=== PATIENT | male | born 1950 | race Caucasian/White ===

== ENCOUNTER 2016-11-26 22:04 | Inpatient (IN) | payer OTHER ==
[~2016-11-26] VITALS: Ht 193 cm; Wt 97.5 kg
[~2016-11-26 22:04] MED LIST: ACULAR 0.5100 DROP/5 LEFT EYE; ENALAPRIL MALEA20 MG PO; ERYTHROMYC1 APPLICAT LEFT EYE; MAXZIDE 75/501 EACH PO
[2016-11-27 09:47] VITALS: BP 144/78
[2016-11-27 14:49] LABS: HEMATOCRIT 37.6 % (38.0-50.0); MCV 92.2 FL (86-99)
[2016-11-27 16:01] VITALS: BP 143/72
[2016-11-27 19:36] VITALS: BP 124/72
[2016-11-28 00:25] VITALS: BP 114/58
[2016-11-28 04:31] VITALS: BP 101/58
[2016-11-28 06:39] LABS: HEMATOCRIT 36.5 % (38.0-50.0); MCV 91.5 FL (86-99)
[2016-11-28 08:25] VITALS: BP 119/56
[2016-11-28 12:04] VITALS: BP 110/67
[2016-11-28 15:50] VITALS: BP 101/55
[2016-11-28 19:50] VITALS: BP 100/55
[2016-11-29 00:15] VITALS: BP 101/57
[2016-11-29 04:24] VITALS: BP 122/54
[2016-11-29 05:33] LABS: HEMATOCRIT 33.7 % (38.0-50.0); MCV 91.8 FL (86-99)
[2016-11-29] MEDS ORDERED: BENADRYL25 MG PO (10:15)
[2016-11-29] MEDS ORDERED: TYLENOL REGULA325 MG PO (10:19)
[2016-11-29] MEDS ORDERED: BISACODYL5 MG PO (10:19)
[2016-11-29] MEDS ORDERED: ELIQUIS2.5 MG PO (10:20)
[2016-11-29] MEDS ORDERED: OXYCODONE HCL5 MG PO (10:20)
[2016-11-29] MEDS ORDERED: CELECOXIB200 MG PO (10:20)
[2016-11-29 11:52] VITALS: BP 85/52
== END 2016-11-29 15:40 | disposition home health service (06) | DRG 470 ==
LOC: ENRESERV 22:04 → 2SOUTH 11-27 08:16 → 3WEST 11-27 09:18 → 2SOUTH 11-27 09:18 → 3WEST 11-27 15:36
PROVIDERS: Orthopaedic Surgery
PROC: 0SR904Z Replacement of Right Hip Joint with Ceramic on Polyethylene Synthetic Substitute, Open Approach (ICD-10-PCS; principal; 2016-11-27)
DX: M16.11 Unilateral primary osteoarthritis, right hip (principal); I10 Essential (primary) hypertension; G47.9 Sleep disorder, unspecified; R61 Generalized hyperhidrosis; R42 Dizziness and giddiness; Z83.3 Family history of diabetes mellitus; Z80.9 Family history of malignant neoplasm, unspecified
CPT/HCPCS: 73501; 85014; 85018; 97530 GO; J0131; J0690; J2250; J3010; J7050